=== PATIENT | male | born 1965 | race Two or more races ===

== ENCOUNTER 2023-10-21 09:58 | Emergency (ER) | payer MEDICAID ==
[~2023-10-21] VITALS: Ht 172.7 cm; Wt 83.9 kg
--- NOTE | 2023-10-21 10:02 | NUR ---
Erica an in [facility] - 10/21/23 at 1003 by JAYLEN COVID SPECIMEN COLLECTED AND SENT TO LAB
[2023-10-21 10:16] VITALS: TEMP 98.1
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
[2023-10-21] MEDS ORDERED: LIDOCAINE 2% 20 ML MDV ONE (12:22)
[2023-10-21] MEDS ORDERED: CEPHALEXIN MONOHYDRATE 500 MG CAPSULE PO ONE (12:23)
[2023-10-21] MEDS ORDERED: TDAP [DIPH/PERTUSSIS/TET] 0.5 ML VIAL IM ONE (12:23)
[2023-10-21] MEDS: LIDOCAINE 2% 20 ML MDV TP ONE (12:28)
[2023-10-21] MEDS: CEPHALEXIN MONOHYDRATE 500 MG CAPSULE PO ONE (12:30)
[2023-10-21] MEDS: TDAP [DIPH/PERTUSSIS/TET] 0.5 ML VIAL IM ONE (12:35)
--- NOTE | 2023-10-21 12:35 | NUR ---
PATIENT IS UP TO DATE ON TDAP. PATIENT HAD IT ON 2017
[2023-10-21] MEDS ORDERED: GELATIN SPONGE,ABSORBABLE 1 EA SPONGE TP ONE (13:36)
[2023-10-21] MEDS ORDERED: CEPH500C2 PO (13:47)
--- NOTE | 2023-10-21 13:48 | NUR ---
DR SIMPSON PAGED. AWAITING CALL BACK.
--- NOTE | 2023-10-21 14:45 | NUR ---
DR SIMPSON PAGED FOR CONSULT
[2023-10-21] MEDS ORDERED: SILVER SULFADIAZINE CREAM 25 GM TUBE ONE (15:25)
--- NOTE | 2023-10-21 15:30 | NUR ---
Patient discharged to home in stable condition. Written and verbal after care instructions given. Patient verbalizes understanding of instruction.
[2023-10-21 16:17] VITALS: BP 128/78; O2SAT 99
== END 2023-10-21 16:18 | disposition home or self-care (01) ==
LOC: ER 10:01
DX: S61.314A Laceration without foreign body of right ring finger with damage to nail, initial encounter (principal); Z79.899 Other long term (current) drug therapy; W23.0XXA Caught, crushed, jammed, or pinched between moving objects, initial encounter; Y93.89 Activity, other specified; Y92.89 Other specified places as the place of occurrence of the external cause; Y99.8 Other external cause status
CPT/HCPCS: 29130; 73140; 99283; A6403; 90715; J3490